=== PATIENT | male | born 1985 | race Caucasian/White ===

== ENCOUNTER 2024-06-14 09:07 | Day surgery (SDC) | payer OTHER ==
[2024-06-14 09:54] VITALS: RESP 16; TEMP 98
[2024-06-14] MEDS: IV FLUID CONTINUATION 1,000 ML IV ONE (09:54)
[2024-06-14] MEDS: LACTATED RINGERS 1,000 ML IV SCH (09:55)
[2024-06-14] MEDS ORDERED: PROPOFOL 10 MG/ML 20 ML VIAL IV ONE (10:36)
[2024-06-14] MEDS ORDERED: LIDOCAINE 1% INJ 10MG/ML (20 ML MDV) ONE (10:36)
--- NOTE | 2024-06-14 10:47 | P.PCN ---
Date of Procedure: 06/14/24 Procedure(s) Performed: BRIEF HISTORY: Patient is a 39-year-old, pleasant, white male scheduled for an upper endoscopy as a part evaluation of intermittent atypical chest pain for the last 2 years duration. He has these episodes once a month the last for a couple of days and results. For the last 1 year has been having frequent heartburn with occasional dysphagia. He was started omeprazole 20 mg daily about 2 weeks ago with some improvement in his symptoms.. PROCEDURE PERFORMED: Esophagogastroduodenoscopy with biopsy. PREOPERATIVE DIAGNOSIS: Atypical chest pain and heartburn. IV sedation per anesthesia. PROCEDURE: After informed consent was obtained, the patient was brought into the endoscopy unit. IV sedation was administered by Anesthesia under continuous monitoring. Initially the Olympus GIF-140 video endoscope was inserted into the mouth. Esophagus intubated without any difficulty. It was gradually advanced into the stomach and duodenum and carefully examined. The bulb and the second part of the duodenum appeared normal. The scope at this time was withdrawn to the stomach, adequately insufflated with air, and upon careful examination, mucosa of the antrum, mild gastritis and biopsies were done of this area. Body, cardia and the fundus appeared normal. The scope was then withdrawn into the esophagus. Small hiatal hernia noted. The GE junction was located at 43 cm from the incisors. There was a distal esophageal ulceration at the GE junction and multiple superficial erosions in the distal esophagus all consistent with LA grade C reflux esophagitis. Rest of the esophagus appeared normal and the patient tolerated the procedure well. IMPRESSION: 1. Superficial ulceration at the GE junction and linear erosions of the distal esophagus consistent with LA grade C reflux esophagitis. 2. Mild hiatal hernia 3. Mild antral gastric. RECOMMENDATIONS: The findings of this examination were discussed with the patient as well as his family. With the biopsy results. He was advised to increase omeprazole to 20 mg twice daily for 3 months and then continue with onc e daily medications and follow strict antireflux measures..
[2024-06-14 11:10] VITALS: BP 136/82; PULSE 65
== END 2024-06-14 11:26 | disposition home or self-care (01) ==
LOC: ORWHC2ENDO 09:07
PROVIDERS: ATTEND Internal Medicine Gastroenterology
DX: K29.50 Unspecified chronic gastritis without bleeding (principal); K44.9 Diaphragmatic hernia without obstruction or gangrene; K22.10 Ulcer of esophagus without bleeding; K21.9 Gastro-esophageal reflux disease without esophagitis; Z79.899 Other long term (current) drug therapy; Z98.890 Other specified postprocedural states
CPT/HCPCS: 88305; 43239; J2003; J2704